=== PATIENT | female | born 1985 | race Caucasian/White ===

== ENCOUNTER 2021-02-21 20:39 | Emergency (ER) | payer OTHER, SELFPAY ==
--- NOTE | ~2021-02-21 | XR_ITS ---
EXAMINATION: XR chest 1V portable DATE: 02/21/2021 21:36 INDICATION: Sore throat. Cough. TECHNIQUE: A single frontal view of the chest was obtained. COMPARISON: Chest 2 views 09/23/2015 FINDINGS: A calcified right lung nodule and calcified right hilar and mediastinal lymph nodes are con sistent with old granulomatous disease. No pleural effusion or pneumothorax. The heart size is normal . IMPRESSION: 1. No acute cardiopulmonary disease. Reviewed, dictated and finalized at location A.
[2021-02-21 20:40] VITALS: BP 136/79; PULSE 81; RESP 18; TEMP 36; O2SAT 99
--- NOTE | 2021-02-21 22:22 | ED.GENADULT ---
HPI - General Adult General Chief complaint: Upper Respiratory Infection Stated complaint: bronchitis Time Seen by Provider: 02/21/21 21:20 History of Present Illness HPI narrative: 35-year-old female presents to emergency department chief complaint of cough. The patient reports that her symptoms started in the last 24 hours reports she is had a little bit of a green sputum reports that she smokes cigarettes. The patient denies fever. Patient reports that this feels like whenever she has bronchitis. Related Data Allergies Allergy/AdvReac Type Severity Reaction Status Date / Time morphine Allergy Intermediate Hives Verified 02/21/21 20:43 Review of Systems Review of Systems: Narrative: A 10 system review of systems was completed on the patient and is negative except for what is stated in the HPI. Nursing and ancillary documentation was reviewed. [facility] Social History Social History Gender identity (if verbalized by the patient): Female Sexual Orientation (if Verbalized by the Patient): Straight or Heterosexual Comments Social history the patient reports she smokes cigarettes Exam Narrative: Exam Narrative: GENERAL: Well-appearing, well-nourished, and in no acute distress. HEAD: Normocephalic, atraumatic. EYES: PERRLA and EOMI. ENT: Nares clear, no rhinorrhea or epistaxis. Mucous membranes moist. NECK: Supple. CHEST: Clear to auscultation. No respiratory distress. HEART: Regular rate and rhythm. No murmur heard. Normal peripheral pulses. ABDOMEN: Soft, nontender, nondistended, normal active bowel sounds. EXTREMITIES: Normal range of motion. No edema. SKIN: Warm, dry, no rash. NEURO: No focal deficits. Alert and oriented x3. PSYCH: Normal mood and affect. Course Vital Signs Vital signs: Vital Signs Temperature 36.0 C L 02/21/21 20:40 Pulse Rate 81 02/21/21 20:40 Respiratory Rate 18 02/21/21 20:40 Blood Pressure 136/79 02/21/21 20:40 Pulse Oximetry 99 02/21/21 20:40 Temperature 36.0 C L 02/21/21 20:40 Pulse Rate 81 02/21/21 20:40 Respiratory Rate 18 02/21/21 20:40 Blood Pressure 136/79 02/21/21 20:40 Pulse Oximetry 99 02/21/21 20:40 Medical Decision Making Vital Signs Vital Signs: Vital Signs Temperature 36.0 C L 02/21/21 20:40 Pulse Rate 81 02/21/21 20:40 Respiratory Rate 18 02/21/21 20:40 Blood Pressure 136/79 02/21/21 20:40 Pulse Oximetry 99 02/21/21 20:40 Temperature 36.0 C L 02/21/21 20:40 Pulse Rate 81 02/21/21 20:40 Respiratory Rate 18 02/21/21 20:40 Blood Pressure 136/79 02/21/21 20:40 Pulse Oximetry 99 02/21/21 20:40 Lab Data Labs: Strep Screen Presumptive Negative *(Reference Range: Negative)* Discharge Plan Discharge Clinical Impression: Upper respiratory infection Qualifiers: URI type: unspecified viral URI Qualified Code(s): J06.9 - Acute upper respiratory infection, unspecified Patient Disposition: Home, Self-Care Condition: Stable Instructions: Antibiotic Form, Upper Respiratory Infection (ED) Prescriptions: New albuterol sulfate 90 mcg/actuation HFA aerosol inhaler 2 puff inhalation QID PRN (Reason: shortness of breath or wheezing) Qty: 8.5 RF: 0 benzonatate 200 mg capsule 200 mg PO TID PRN (Reason: cough) Qty: 21 RF: 0 Follow-up/Referrals: Arjun Cuevas MD [Primary Care Provider] - Time of Disposition: 22:31
[2021-02-22 18:42] LABS: SARS-CoV-2 RNA PCR Negative
== END 2021-02-21 22:52 | disposition home or self-care (01) ==
PROVIDERS: Emergency Provider Emergency Medicine; PCP Emergency Medicine
DX: J06.9 Acute upper respiratory infection, unspecified (principal); Z20.822 Contact with and (suspected) exposure to COVID-19; F17.210 Nicotine dependence, cigarettes, uncomplicated
CPT/HCPCS: 71045; 87081; 87880; 99283; C9803; U0003; U0005

== ENCOUNTER 2022-03-22 21:51 | Emergency (ER) | payer OTHER, SELFPAY ==
[2022-03-22 21:57] VITALS: BP 134/88; PULSE 97; RESP 18; TEMP 36.6; O2SAT 100
--- NOTE | 2022-03-22 23:09 | ED.URI ---
HPI - URI/Sore Throat General Chief Complaint: Upper Respiratory Infection Stated Complaint: fatigue, cold sweats , fever, n/v/d since Time Seen by Provider: 03/22/22 22:46 Source: patient Mode of arrival: ambulatory Limitations: no limitations History of Present Illness HPI Narrative: This is a 36 year old female that presents to the ER for nausea, vomiting and diarrhea. Symptoms started 2 days ago. Associated with subjective fevers. Reports some lymphadenopathy in her neck which concerned her and prompted her to be seen. Reports a cough, although this is not unusual for her due to her smoking history. Reports the vomiting has subsided, but she is still having some diarrhea. Denies abdominal pain. Related Data Allergies Allergy/AdvReac Type Severity Reaction Status Date / Time morphine Allergy Intermediate Hives Verified 03/22/22 22:00 Review of Systems Review of Systems: CONSTITUTIONAL: Reports fever ENT: Denies congestion, sore throat CARDIOVASCULAR: Denies chest pain RESPIRATORY: Denies dyspnea. GASTROINTESTINAL: Reports nausea, vomiting and diarrhea. Denies abdominal pain GENITOURINARY: Denies dysuria All systems reviewed & are unremarkable except as noted in HPI and below PMFSH Past Medical History Medical History (Updated 03/23/22 @ 01:10 by Linsey Ramirez PA-C) No active medical problems Social History Social History (Updated 03/22/22 @ 23:13 by Linsey Ramirez PA-C) Smoking status: Current every day smoker Gender identity (if verbalized by the patient): Female Sexual Orientation (if Verbalized by the Patient): Straight or Heterosexual Exam Narrative: GENERAL: Well-appearing, well-nourished, and in no acute distress. HEAD: Normocephalic, atraumatic. EYES: EOMI. ENT: Nares clear, no rhinorrhea or epistaxis. Mucous membranes moist. Oropharynx without tonsillar hypertrophy exudate or other lesions. Bilateral TMs pearly lópez non-bulging NECK: Supple. No adenopathy or masses. CHEST: Clear to auscultation. No respiratory distress. No wheezes rales or rhonchi HEART: Regular rate and rhythm. No murmur heard. Normal peripheral pulses. ABDOMEN: Soft, nontender, nondistended, normal active bowel sounds. EXTREMITIES: Normal range of motion. No edema. SKIN: Warm, dry, no rash. NEURO: No focal deficits. Alert and oriented x3. PSYCH: Normal mood and affect Course Vital Signs Vital signs: Vital Signs Temperature 97.8 F 03/22/22 21:57 Pulse Rate 97 03/22/22 21:57 Respiratory Rate 18 03/22/22 21:57 Blood Pressure 134/88 03/22/22 21:57 Pulse Oximetry 100 03/22/22 21:57 Oxygen Delivery Room Air 03/22/22 21:57 Temperature 97.8 F 03/22/22 21:57 Pulse Rate 83 03/23/22 01:28 Respiratory Rate 13 03/23/22 01:28 Blood Pressure 120/80 03/23/22 01:28 Pulse Oximetry 96 03/23/22 01:28 Oxygen Delivery Room Air 03/22/22 23:20 MDM - URI/Sore Throat MDM Narrative Medical decision making narrative: Patient presents to the emergency department for nausea, vomiting and diarrhea. Also reporting subjective fevers. She is afebrile in the ED and nontoxic-appearing. Her vitals are stable. Reports her symptoms have been improving. CBC and metabolic panel without concerning findings. Lipase is normal. UA without evidence of infection. Bedside test is negative. COVID screen is positive. Patient's feelings of swelling in her neck likely due to current viral infection with lymphadenopathy. No concerning lymphadenopathy noted on exam. Patient was updated on case findings. She is stable and felt appropriate for further outpatient evaluation. Instructed to follow-up with primary care doctor. She was given warnings to return to the ER Lab Data Attestation: I reviewed the patient's lab results. Result diagrams: 03/22/22 23:32 03/22/22 23:32 Labs: Lab Results 03/22/22 03/22/22 03/22/22 Range/Units 23:32 23:32 23:32 WBC 8.4 (
[2022-03-22 23:20] VITALS: O2SAT 95
[2022-03-22 23:41] LABS: Basophils Absolute Auto 0.1 K/mm3 (0.0-0.1); Basophils Percent Auto 0.8 % (0.2-1.2); Eosinophils Absolute Auto 0.2 K/mm3 (0-0.3); Eosinophils Percent Auto 2.7 % (0-4.4); Hemoglobin 14.3 g/dL (12.0-15.0); Immature Granulocyte Absolute 0.02 K/mm3 (0.00-0.031); Immature Granulocyte Percent A 0.2 % (0-0.5); Lymphocytes Absolute Auto 3.24 K/mm3 (0.9-3.2); Lymphocytes Percent Auto 38.4 % (18.3-44.2); Mean Corpuscular HGB Conc 32.5 g/dl (32-36); Mean Corpuscular Hemoglobin 28.3 pg (26-34); Mean Platelet Volume 10.5 fl (7.4-10.4); Monocytes Percent Auto 11.3 % (2.6-8.5); Neutrophils Absolute Auto 3.9 K/mm3 (1.3-6.7); Neutrophils Percent Auto 46.6 % (45.5-73.1); Platelet Count Result 317 k/mm3 (150-375); Red Blood Count 5.06 M/mm3 (4.2-5.4); Red Cell Distribution Width 13.1 % (11.5-14.5); White Blood Count 8.4 K/mm3 (4.5-10.0)
[2022-03-22 23:47] LABS: Alanine Aminotransferase 16 U/L (6-35); Albumin Level 4.5 g/dL (3.5-5.1); Alkaline Phosphatase 73 U/L (38-126); Anion Gap 6 mmol/L (8-16); Aspartate Amino Transferase 26 U/L (14-36); Bilirubin,Total 0.3 mg/dL (0.2-1.3); Blood Urea Nitrogen 16 mg/dL (7-17); Calcium 9.1 mg/dL (8.4-10.2); Carbon Dioxide 27 mmol/L (22-30); Chloride 103 mmol/L (98-107); Estimated CRCL calculation 79 ml/min; Estimated Glomerular Filt Rate > 60; Glucose 98 mg/dL (65-110); Lipase 134 U/L (23-300); Potassium 3.9 mmol/L (3.4-5.0); Sodium 136 mmol/L (137-145)
[2022-03-22 23:58] LABS: Appearance Urine Clear (Clear); Bilirubin Urine Negative (Negative); Blood Urine 2+ (Negative); Color Urine Yellow (Yellow); Glucose Urine UA Negative (Negative); Ketones Urine Negative (Negative); Leukocyte Esterase Ur Negative LEU/UL (Negative); Nitrate Urine Negative (Negative); Protein Urine 2+ mg/dL (Negative); Specific Grav Ur >= 1.030 (1.001-1.035); Urobilinogen Urine 0.2 mg/dL (<2.0); pH Urine 5.5 (5.0-9.0)
[2022-03-23 00:01] LABS: Mucus Urine Rare /lpf; Squamous Epithelial Cell Urine Occasional /hpf (Few); WBC Urine 0-3 /hpf
[2022-03-23 00:06] LABS: Add Urine Microscopic? YES
[2022-03-23 00:10] VITALS: PULSE 71; RESP 16; O2SAT 96
[2022-03-23 00:22] LABS: Monoscreen Negative (Negative); Negative Monotest Control Negative (Negative); Positive Monotest Control Positive (Positive)
[2022-03-23 00:56] LABS: Influenza A QL RT-PCR Negative (Negative); Influenza B QL RT-PCR Negative (Negative); SARS-CoV-2 RNA PCR Positive
[2022-03-23 01:28] VITALS: BP 120/80; PULSE 83; RESP 13; O2SAT 96
== END 2022-03-23 01:28 | disposition home or self-care (01) ==
PROVIDERS: Physician Assistant; Emergency Provider General Practice
DX: U07.1 COVID-19 (principal); F17.200 Nicotine dependence, unspecified, uncomplicated
CPT/HCPCS: 36415; 80053; 81001; 81025; 83690; 85025; 86308; 87502; 99283; C9803; U0003; U0005